=== PATIENT | female | born 1945 | race Caucasian/White ===

== ENCOUNTER 2016-12-11 22:35 | Emergency (ER) | payer MEDICARE ==
[2016-12-11] MEDS ORDERED: Diph,Pert(Acell),Tet Vac 0.5 ML SYR IM ONE (22:54)
--- NOTE | 2016-12-11 22:58 | Emergency Department Record ---
History of Present Illness - General Chief Complaint: Animal Bite Stated Complaint: CAT BITE Time Seen by Provider: 12/11/16 22:53 Mode of Arrival: Ambulatory - History of Present Illness Initial Comments: The patient has several cat bites to her right hand from her older cat earlier today whose animal shots are UTD. The patient has a rash from penicillin, but states she is able to take keflex and augmentin without problems. She is unsure of her tetanus. Onset/Timin -: Minutes(s) Animal: Cat Description: Household pet Mechanism: Bite, Scratch Severity scale (1-10): 3 Context: Animals fighting Associated Symptoms: None - Related Data Patient Tetanus UTD (within 5 yrs): No Home Medications Medication Instructions Recorded Confirmed Last Taken Losartan Potassium 100 mg PO DAILY #90 12/11/15 12/11/16 12/10/16 Ciprofloxacin HCl [Cipro] 250 mg PO ASDIR 12/11/16 12/11/16 12/10/16 Previous Rx's Medication Instructions Recorded Amoxicillin/Potassium Clav 1 tab PO BID #19 tab 12/11/16 [Augmentin 875-125 Tablet] Allergies Allergy/AdvReac Type Severity Reaction Status Date / Time Penicillins [PENICILLINS] Allergy Intermediate HIVES Verified 12/11/16 22:44 nitrofurantoin AdvReac DIZZINESS Verified 12/11/16 22:44 Sulfa (Sulfonamide AdvReac upset Verified 12/11/16 22:44 Antibiotics) stomach Travel Screening - Travel/Exposure Within Last 30 Days Have you traveled within the last 30 days?: No - Travel Symptoms Symptom Screening: None Review of Systems Reviewed: No additional complaints except as noted below Constitutional: Reports: As per HPI. Denies: Chills, Fever, Malaise, Night sweats, Weakness, Weight change Eyes: Reports: As per HPI. Denies: Eye discharge, Eye pain, Photophobia, Vision change ENT: Reports: As per HPI. Denies: Congestion, Dental pain, Ear pain, Epistaxis , Hearing loss, Throat pain Respiratory: Reports: As per HPI. Denies: Cough, Dyspnea, Hemoptysis, Stridor, Wheezes Cardiovascular: Reports: As per HPI. Denies: Arrhythmia, Chest pain, Dyspnea on exertion, Edema, Murmurs, Orthopnea, Palpitations, Paroxysmal nocturnal dyspnea, Rheumatic Fever, Syncope Endocrine: Reports: As per HPI. Denies: Fatigue, Heat or cold intolerance, Polydipsia, Polyuria Gastrointestinal: Reports: As per HPI. Denies: Abdominal pain, Constipation, Diarrhea, Hematemesis, Hematochezia, Melena, Nausea, Vomiting Genitourinary: Reports: As per HPI. Denies: Abnormal menses, Discharge, Dyspareunia, Dysuria, Frequency, Hematuria, Incontinence, Retention, Urgency Musculoskeletal: Reports: As per HPI. Denies: Arthralgia, Back pain, Gout, Joint swelling, Myalgia, Neck pain Skin: Reports: As per HPI. Denies: Bruising, Change in color, Change in hair/ nails, Lesions, Pruritus, Rash Neurological: Reports: As per HPI. Denies: Abnormal gait, Confusion, Headache, Numbness, Paresthesias, Seizure, Tingling, Tremors, Vertigo, Weakness Psychiatric: Reports: As per HPI. Denies: Anxiety, Auditory hallucinations, Depression, Homicidal thoughts, Suicidal thoughts, Visual hallucinations Hematological/Lymphatic: Reports: As per HPI. Denies: Anemia, Blood Clots, Easy bleeding, Easy bruising, Swollen glands Past Medical History - SOCIAL HISTORY Smoking Status: Never smoker - RESPIRATORY Hx Respiratory Disorders: No - CARDIOVASCULAR Hx Cardio Disorders: Yes Hx Hypertension: Yes - NEURO Hx Neuro Disorders: No - GI Hx GI Disorders: Yes Hx Celiac Disease: Yes - Hx Genitourinary Disorders: No Comment:: hyst - ENDOCRINE Hx Endocrine Disorders: No - MUSCULOSKELETAL Hx Musculoskeletal Disorders: Yes Hx Arthritis: Yes - PSYCH Hx Psych Problems: No - HEMATOLOGY/ONCOLOGY Hx Hematology/Oncology Disorders: No Family Medical History Any Significant Family History?: Yes Family Hx Comment (NOT TO BE USED IN PLACE OF ITEMS BELOW): mom w/AAA Hx Cancer: Grandparents Hx Heart Disease: Father Physical Exam - General General Appearance: Alert, Oriented x3, Cooperative, No acute distress - Head Head exam: Normal inspection - Eye Eye exam: Normal appearance, PERRL Pupils: Normal accommodation - ENT ENT exam: Normal exam, Mucous membranes moist, Normal external ear exam, Normal orophraynx Ear exam: Normal external inspection. negative: External canal tenderness Nasal Exam: Normal inspection. negative: Discharge, Sinus tenderness Mouth exam: Normal external inspection Teeth exam: Normal inspection. negative: Dental caries Throat exam: Normal inspection. negative: Tonsillar erythema, Tonsillar exudate - Neck Neck exam: Normal inspection, Full ROM. negative: Tenderness - Respiratory Respiratory exam: negative: Respiratory distress - Cardiovascular Cardiovascular Exam: Regular rate, Normal rhythm - GI/Abdominal GI/Abdominal exam: Soft, Normal bowel sounds. negative: Tenderness - Rectal Rectal exam: Deferred - exam: Deferred - Extremities Extremities exam: Normal inspection, Full ROM, Normal capillary refill, Other ( Right hand with several tiny punctate wounds over hand fingers, thumb. No proximal cellulitis or lymphangitis.). negative: Tenderness - Back Back exam: Reports: Normal inspection, Full ROM. Denies: Muscle spasm, Rash noted, Tenderness - Neurological Neurological exam: Alert, Normal gait, Oriented X3, Reflexes normal - Psychiatric Psychiatric exam: Normal affect, Normal mood - Skin Skin exam: Dry, Intact, Normal color, Warm Course Vital Signs 12/11/16 22:42 Temperature 97.5 F L Pulse Rate [ 72 Pulse Ox Probe] Respiratory 18 Rate Blood Pressure 154/79 [Left Arm] Pulse Ox 97 - Reevaluation(s) Reevaluation #1: Patient states that she can take Augmentin and Keflex without problems. Her penicillin allergy is rash only. 12/11/16 23:25 Medical Decision Making - Management Options MDM Management: No Additional Work-up Planned Disposition Disposition: Discharge Clinical Impression: Cat bite of hand Qualifiers: Encounter type: initial encounter Laterality: right Qualified Code(s): S61.451A - Open bite of right hand, initial encounter; W55.01XA - Bitten by cat , initial encounter Disposition: Home, Self-Care Condition: (1) Good Instructions: Animal Bite (ED) Additional Instructions: Take antibiotics as directed until gone. Follow up wit hPCP as needed. tylenol or ibuprofen as needed as directed for pain. Keep wounds covered until dry and healed. Prescriptions: Amoxicillin/Potassium Clav [Augmentin 875-125 Tablet] 1 tab PO BID #19 tab Forms: Patient Portal Access
[2016-12-11] MEDS ORDERED: AMOXICILLIN/POTASSIUM CLAV 875MG/125MG TABLET PO ONE (23:06)
== END 2016-12-11 23:42 | disposition home or self-care (01) ==
LOC: ER 22:35
DX: S61.451A Open bite of right hand, initial encounter (principal); W55.01XA Bitten by cat, initial encounter
CPT/HCPCS: 90715; 99282

== ENCOUNTER 2018-08-14 06:36 | Emergency (ER) | payer MEDICARE ==
[2018-08-14 07:04] LABS: URINE APPEARANCE CLOUDY; URINE BILIRUBIN NEGATIVE (NEGATIVE); URINE BLOOD MODERATE (NEGATIVE); URINE COLOR YELLOW; URINE GLUCOSE (UA) NEGATIVE (NEGATIVE); URINE KETONE NEGATIVE (NEGATIVE); URINE LEUKOCYTE ESTERASE MODERATE (NEGATIVE); URINE NITRITE NEGATIVE (NEGATIVE); URINE UROBILINOGEN 0.2 E.U./dL (0.20 - 1.00)
[2018-08-14 07:11] LABS: URINE BACTERIA FEW; URINE EPITHELIAL CELLS RARE (FEW); URINE RBC 21 - 35 (NONE SEEN); URINE WBC >50 (0-2/hpf)
--- NOTE | 2018-08-14 07:13 | Emergency Department Record ---
History of Present Illness - General Chief complaint: Female Urogenital Problem Stated complaint: uti Time Seen by Provider: 08/14/18 06:46 Source: Patient Mode of Arrival: Ambulatory Limitations: No limitations - History of Present Illness Initial comments: The patient is here due to a 3 day hx of dysuria. She is having mild suprapubic cramping. The patient states she has a long hx of frequent UTI's similar to this. The patient denies any AP, back pain, fever, or chills. She did vomit during the night but denies any nausea now. MD Complaint: Dysuria Onset/Timin -: Hour(s) Location: Perineum Severity: Mild Quality: Burning Consistency: Constant Improves with: Other Worsens with: Other Patient : No Associated Symptoms: Nausea/vomiting - Related Data Sexually active: Yes Previous Rx's Medication Instructions Recorded Ciprofloxacin HCl [Cipro] 1 tab PO Q12H #14 tab 08/14/18 Ondansetron [Zofran Odt] 4 mg SL .Q4-6H PRN #8 tab.rapdis 08/14/18 Allergies Allergy/AdvReac Type Severity Reaction Status Date / Time Penicillins [PENICILLINS] Allergy Intermediate HIVES Verified 08/14/18 06:42 nitrofurantoin AdvReac DIZZINESS Verified 08/14/18 06:42 Sulfa (Sulfonamide AdvReac upset Verified 08/14/18 06:42 Antibiotics) stomach Travel Screening - Travel/Exposure Within Last 30 Days Have you traveled within the last 30 days?: No - Travel/Exposure Within Last Year Have you traveled outside the [place] in the last year?: No - Additonal Travel Details Have you been exposed to anyone with a communicable illness?: No - Travel Symptoms Symptom Screening: None Review of Systems Constitutional: Denies: Chills, Fever Eyes: Denies: Eye discharge ENT: Denies: Congestion Respiratory: Denies: Cough, Dyspnea Past Medical History - SOCIAL HISTORY Smoking Status: Never smoker Alcohol Use: None Drug Use: None - RESPIRATORY Hx Respiratory Disorders: No - CARDIOVASCULAR Hx Cardio Disorders: Yes Hx Hypertension: Yes - NEURO Hx Neuro Disorders: No - GI Hx GI Disorders: Yes Hx Celiac Disease: Yes - Hx Genitourinary Disorders: No Comment:: hyst - ENDOCRINE Hx Endocrine Disorders: No - MUSCULOSKELETAL Hx Musculoskeletal Disorders: Yes Hx Arthritis: Yes - PSYCH Hx Psych Problems: No - HEMATOLOGY/ONCOLOGY Hx Hematology/Oncology Disorders: No Family Medical History Any Significant Family History?: Yes Family Hx Comment (NOT TO BE USED IN PLACE OF ITEMS BELOW): mom w/AAA Hx Cancer: Grandparents Hx Heart Disease: Father Physical Exam - General General Appearance: Alert, Oriented x3, Cooperative, No acute distress (The patient is clearly nontoxic in no distress.) - Head Head exam: Atraumatic, Normocephalic, Normal inspection - Eye Eye exam: Normal appearance, PERRL, EOMI - Neck Neck exam: Normal inspection, Full ROM. negative: Tenderness - Respiratory Respiratory exam: Normal lung sounds bilaterally. negative: Respiratory distress - Cardiovascular Cardiovascular Exam: Regular rate, Normal rhythm, Normal heart sounds - GI/Abdominal GI/Abdominal exam: Soft, Normal bowel sounds. negative: Tenderness - Extremities Extremities exam: Normal inspection, Full ROM, Normal capillary refill. negative: Tenderness - Back Back exam: Denies: CVA tenderness (R), CVA tenderness (L) - Neurological Neurological exam: Alert, Normal gait. negative: Abnormal gait, Motor sensory deficit Course Vital Signs 08/14/18 06:43 Temperature 97.5 F L Pulse Rate 57 L Respiratory 18 Rate Blood Pressure 190/100 Pulse Ox 99 - Reevaluation(s) Reevaluation #1: I did discuss the positive UA results with the patient and the need for an oral Abx. She is to take her BP medicine when she gets home also since her BP is elevated and she has not taken it yet today.The patient understands the need to return for any fever, pain, or persistent vomiting. 08/14/18 07:57 Medical Decision Making - Lab Data Lab Results 08/14/18 Range/Units 07:00 Urine Color Yellow Urine Appearance Cloudy Urine pH 6.0 (5.0-8.0) Ur Specific [place] >= 1.030 (1.002-1.030) Urine Protein 30 mg/dl H (NEGATIVE) Urine Glucose (UA) Negative (NEGATIVE) Urine Ketones Negative (NEGATIVE) Urine Blood Moderate (NEGATIVE) Urine Nitrite Negative (NEGATIVE) Urine Bilirubin Negative (NEGATIVE) Urine Urobilinogen 0.2 (0.20 - 1.00) E.U./dL Ur Leukocyte Esterase Moderate H (NEGATIVE) Urine RBC 21 - 35 (NONE SEEN) Urine WBC >50 (0-2/hpf) Ur Epithelial Cells Rare (FEW) Urine Bacteria Few Disposition Disposition: Discharge Clinical Impression: UTI (urinary tract infection) Qualifiers: Urinary tract infection type: acute cystitis Hematuria presence: with hematuria Qualified Code(s): N30.01 - Acute cystitis with hematuria Disposition: Home, Self-Care Condition: (2) Stable Instructions: Urinary Tract Infection in Women (ED) Additional Instructions: Please drink plenty of fluids and continue the Cipro as directed. Please use the Zofran if needed. Return to the ER for any pain, fever, or persistent vomiting. Please take your BP medicine when you get home. Please see your family doctor next week for recheck and to make sure the blood resolves in the urine. Prescriptions: Ciprofloxacin HCl [Cipro] 1 tab PO Q12H #14 tab Ondansetron [Zofran Odt] 4 mg SL .Q4-6H PRN #8 tab.rapdis PRN Reason: Nausea Forms: Patient Portal Access Time of Disposition: 07:22 Quality - Quality Measures Quality Measures: N/A - Blood Pressure Screening View Details: Yes Does Patient Have Any of the Following: Active Dx of HTN Blood Pressure Classification: Hypertensive Reading Systolic Measurement: 190 Diastolic Measurement: 100 Screening for High Blood Pressure: Patient Exclusion, Hx of HTN [[id number]]
[2018-08-14] MEDS ORDERED: CIPROFLOXACIN HCL 250 MG TABLET PO ONE (07:14)
[2018-08-14] MEDS ORDERED: ONDANSETRON 4 MG ODT TABLET SL ONE (07:24)
== END 2018-08-14 07:35 | disposition home or self-care (01) ==
LOC: ER 06:36
DX: N30.01 Acute cystitis with hematuria (principal); R11.2 Nausea with vomiting, unspecified; I10 Essential (primary) hypertension
CPT/HCPCS: 81001; 99283

== ENCOUNTER 2019-01-25 16:36 | Emergency (ER) | payer MEDICARE ==
[2019-01-25] MEDS ORDERED: ONDANSETRON 4 MG ODT TABLET SL ONE (16:58)
--- NOTE | 2019-01-25 16:58 | Emergency Department Record ---
History of Present Illness - General Chief complaint: Female Urogenital Problem Stated complaint: UTI? Time Seen by Provider: 01/25/19 16:49 Source: Patient, Family Mode of Arrival: Ambulatory Limitations: No limitations - History of Present Illness Initial comments: 73 yo female presents not feeling well today. She states she has some urinary frequency, mild vague diffuse abdominal pain, vomited twice this afternoon. She reports a history of chronic urinary tract infections as well. The current symptoms are similar to when she has an active infection. She is on prophylactic antibiotics twice daily. No fever. No diarrhea. No blood in her urine or stools. No cough, shortness of breath or chest pain. The vague abdominal discomfort does not radiate into her back. She follows with Urology (Karen). MD Complaint: Dysuria, Other Onset/Timin -: Days(s) Location: Other (diffuse) Severity: Mild Severity scale (1-10): 8 Quality: Aching Consistency: Constant Improves with: None Worsens with: None Patient : No Associated Symptoms: Abdominal pain, Nausea/vomiting - Related Data Previous Rx's Medication Instructions Recorded Ondansetron [Zofran Odt] 4 mg PO Q8H #15 tab.rapdis 01/25/19 Allergies Allergy/AdvReac Type Severity Reaction Status Date / Time Penicillins [PENICILLINS] Allergy Intermediate HIVES Unverified 01/11/19 14:48 nitrofurantoin AdvReac DIZZINESS Unverified 01/11/19 14:48 Sulfa (Sulfonamide AdvReac upset Unverified 01/11/19 14:48 Antibiotics) stomach Travel Screening - Travel/Exposure Within Last 30 Days Have you traveled within the last 30 days?: No Review of Systems Constitutional: Denies: Chills, Fever, Malaise, Weakness Eyes: Denies: Eye discharge ENT: Denies: Congestion, Throat pain Respiratory: Denies: Cough, Dyspnea Cardiovascular: Denies: Chest pain, Edema, Syncope Endocrine: Reports: Fatigue Gastrointestinal: Reports: As per HPI, Abdominal pain, Nausea, Vomiting. Denies: Diarrhea, Hematochezia Genitourinary: Reports: Frequency, Urgency. Denies: Dysuria, Retention Musculoskeletal: Denies: Arthralgia, Back pain, Myalgia, Neck pain Skin: Denies: Bruising, Change in color, Pruritus Neurological: Denies: Headache, Weakness Psychiatric: Denies: Anxiety Hematological/Lymphatic: Denies: Easy bleeding, Easy bruising Past Medical History - SOCIAL HISTORY Smoking Status: Never smoker - RESPIRATORY Hx Respiratory Disorders: No - CARDIOVASCULAR Hx Cardio Disorders: Yes Hx Hypertension: Yes - NEURO Hx Neuro Disorders: No - GI Hx GI Disorders: Yes Hx Celiac Disease: Yes - Hx Genitourinary Disorders: No Comment:: hyst - ENDOCRINE Hx Endocrine Disorders: No - MUSCULOSKELETAL Hx Musculoskeletal Disorders: Yes Hx Arthritis: Yes - PSYCH Hx Psych Problems: No - HEMATOLOGY/ONCOLOGY Hx Hematology/Oncology Disorders: No Family Medical History Any Significant Family History?: Yes Family Hx Comment (NOT TO BE USED IN PLACE OF ITEMS BELOW): mom w/AAA Hx Cancer: Grandparents Hx Heart Disease: Father Physical Exam - General General Appearance: Alert, Oriented x3, Cooperative, No acute distress Limitations: No limitations - Head Head exam: Atraumatic, Normal inspection - Eye Eye exam: Normal appearance. negative: Conjunctival injection, Scleral icterus - ENT ENT exam: Normal exam Ear exam: Normal external inspection Nasal Exam: Normal inspection Mouth exam: Normal external inspection - Neck Neck exam: Normal inspection. negative: Tenderness - Respiratory Respiratory exam: Normal lung sounds bilaterally. negative: Chest wall tenderness, Decreased breath sounds, Respiratory distress, Rhonchi, Stridor, Wheezes - Cardiovascular Cardiovascular Exam: Regular rate, Normal rhythm, Normal heart sounds Peripheral Pulses: 2+: Radial (R), Radial (L) - GI/Abdominal GI/Abdominal exam: Soft, Normal bowel sounds, Other (Very soft and non tender abdomen). negative: Diminished bowel sounds, Distended, Guarding, Pulsatile mass, Rebound, Rigid, Tenderness - Rectal Rectal exam: Deferred - exam: Deferred - Extremities Extremities exam: Normal inspection - Back Back exam: Denies: CVA tenderness (R), CVA tenderness (L) - Neurological Neurological exam: Alert, Oriented X3 - Psychiatric Psychiatric exam: Normal affect, Normal mood. negative: Agitated, Anxious - Skin Skin exam: Dry, Intact, Normal color, Warm Course Vital Signs 01/25/19 16:46 Temperature 97.9 F Pulse Rate 59 L Respiratory 18 Rate Blood Pressure 187/85 Pulse Ox 100 - Reevaluation(s) Reevaluation #1: 01/25/19 17:32 The CBC is normal The UA is negative for infection 01/25/19 17:38 The CMP and Lipase are normal The labs are unremarkable for acute changes The examination was very benign The vitals unremarkable for acute abnormalities I discussed the results, close follow up with her PCP, the pending urine culture since she is on antibiotics Medical Decision Making - Lab Data Result diagrams: 01/25/19 17:14 01/25/19 17:14 Disposition Disposition: Discharge Clinical Impression: Nausea and vomiting Qualifiers: Vomiting type: unspecified Vomiting Intractability: non-intractable Qualified Code(s): R11.2 - Nausea with vomiting, unspecified Disposition: Home, Self-Care Condition: (1) Good Instructions: Acute Nausea and Vomiting (ED) Additional Instructions: Call your doctor for the next available follow up appointment Review this ER visit and the tests performed with your family doctor Return to the ER for a recheck if worse, any new concerns or questions Take the prescriptions provided as directed Prescriptions: Ondansetron [Zofran Odt] 4 mg PO Q8H #15 tab.rapdis Forms: Patient Portal Access Time of Disposition: 17:39 Quality - Quality Measures Quality Measures: N/A - Blood Pressure Screening Does Patient Have Any of the Following: Active Dx of HTN Blood Pressure Classification: Pre-Hypertensive BP Reading Systolic Measurement: 187 Diastolic Measurement: 85 Screening for High Blood Pressure: Patient Exclusion, Hx of HTN [G9744]
[2019-01-25 17:17] LABS: ABSOLUTE NEUTROPHIL COUNT 7.19; BASO % 0.2 % (0-6); EOS % 0.3 % (0-6); GRAN % 81.1 % (47-80); HEMATOCRIT 38.5 % (35.0-47.0); HEMOGLOBIN 12.6 gm/dl (11.6-16.0); LYMPH % 12.9 % (16-45); MEAN CELL VOLUME 90.6 fl (81-97); MEAN CORPUSCULAR HEMOGLOBIN 29.6 pg (27-33); MEAN CORPUSCULAR HGB CONC 32.7 g/dl (32-36); MEAN PLATELET VOLUME 9.8 fl (7.4-10.4); MONO % 5.5 % (0-9); PLATELET COUNT 350 K/uL (130-400); RED BLOOD COUNT 4.25 M/uL (3.80-5.40); RED CELL DISTRIBUTION WIDTH 12.7 % (11.5-14.5); URINE APPEARANCE CLEAR; URINE BILIRUBIN NEGATIVE (NEGATIVE); URINE BLOOD NEGATIVE (NEGATIVE); URINE COLOR YELLOW; URINE GLUCOSE (UA) NEGATIVE (NEGATIVE); URINE KETONE 15 mg/dL (NEGATIVE); URINE LEUKOCYTE ESTERASE NEGATIVE (NEGATIVE); URINE NITRITE NEGATIVE (NEGATIVE); URINE PROTEIN NEGATIVE (NEGATIVE); URINE UROBILINOGEN 0.2 E.U./dL (0.20 - 1.00); WHITE BLOOD COUNT W/O DIFF 8.9 K/uL (4.2-12.2)
[2019-01-25 17:26] LABS: BLOOD UREA NITROGEN 12 mg/dL (8-23); CREATININE 0.6 mg/dL (0.5-0.9); EST GLOMERULAR FILTRATION RATE > 60 mL/min
[2019-01-25 17:27] LABS: LIPASE 43 U/L (13-60); TOTAL PROTEIN 6.9 g/dL (6.6-8.7)
[2019-01-25 17:29] LABS: GLUCOSE,RANDOM 106 mg/dL (74-109)
[2019-01-25 17:31] LABS: ALB/GLOB RATIO 1.7 (1.1-1.8); ALBUMIN 4.3 g/dL (4.0-5.0); ALT/SGPT 12 U/L (<33); AST/SGOT 17 U/L (10.0-35.0)
[2019-01-25 17:32] LABS: ALKALINE PHOSPHATASE 57 U/L (35-104)
== END 2019-01-25 17:47 | disposition home or self-care (01) ==
LOC: ER 16:36
DX: R11.2 Nausea with vomiting, unspecified (principal); R10.84 Generalized abdominal pain; R35.0 Frequency of micturition; I10 Essential (primary) hypertension
CPT/HCPCS: 80053; 81003; 83690; 85025; 99284